=== PATIENT | female | born 1960 ===

== ENCOUNTER → 2025-01-11 | Day surgery (SDC) | payer OTHER ==
[2024-12-28 13:12] VITALS: BP 129/84
[~2025-01-11] VITALS: Ht 160 cm; Wt 74.8 kg
[~2025-01-11] MED LIST: IBU600 MG PO; POVIDONE-IODINE 118 ML BOTT TOP ONE
== END | disposition home or self-care (01) ==
LOC: ADM 12-28 11:00 → CIR.AMB 01-04 11:00
PROVIDERS: ATTEND Obstetrics & Gynecology Gynecology
DX: N85.02 Endometrial intraepithelial neoplasia [EIN] (principal)